=== PATIENT | female | born 1975 | race American Indian/Alaskan Native ===

== ENCOUNTER 2018-08-30 16:06 | Emergency (ER) | payer OTHER ==
--- NOTE | 2018-08-30 16:58 | ED PDOC ---
HPI: Abdomen Time Seen by Provider: 08/30/18 16:31 Chief Complaint (Nursing): Abdominal Pain Chief Complaint (Provider): Abdominal Pain History Per: Patient History/Exam Limitations: no limitations Onset/Duration Of Symptoms: Days (x2) Location Of Pain/Discomfort: LLQ Associated Symptoms: Urinary Symptoms (Vaginal bleeding) Additional Complaint(s): 42 y/o female presents to ER for evaluation of left lower quadrant pain radiating to left leg onset 2 days. Patient reports 5 days ago she had fibroid removed by Dr. Perez. She states she initially had vaginal bleeding that is resolved now. Patient reports upon returning to work on Sunday, he developed minimal pain in LLQ radiating to left leg. She reports worsening of pain today at work. Patient works here in [employer]. She denies any trauma, vaginal bleeding, nausea, vomiting, diarrhea or fever. PMD: Angel Past Medical History Reviewed: Historical Data, Nursing Documentation, Vital Signs Vital Signs: Last Vital Signs Temp 98.5 F 08/30/18 16:21 Pulse 74 08/30/18 16:21 Resp 16 08/30/18 16:21 BP 142/92 H 08/30/18 16:21 Pulse Ox 97 08/30/18 16:21 - Medical History PMH: No Chronic Diseases - Surgical History Other surgeries: Fibroid removal - Family History Family History: States: Unknown Family Hx - Allergies Allergies/Adverse Reactions: Allergies Allergy/AdvReac Type Severity Reaction Status Date / Time No Known Allergies Allergy Verified 08/30/18 16:19 Review of Systems ROS Statement: Except As Marked, All Systems Reviewed And Found Negative Constitutional: Negative for: Fever Gastrointestinal: Positive for: Abdominal Pain (LLQ). Negative for: Nausea, Vomiting, Diarrhea Genitourinary Female: Negative for: Vaginal Bleeding Musculoskeletal: Positive for: Leg Pain (Left) Physical Exam - Reviewed Nursing Documentation Reviewed: Yes Vital Signs Reviewed: Yes - Physical Exam Appears: Positive for: Well, No Acute Distress Head Exam: Positive for: ATRAUMATIC, NORMOCEPHALIC Skin: Positive for: Normal Color, Warm, Dry Cardiovascular/Chest: Positive for: Regular Rate, Rhythm. Negative for: Murmur Respiratory: Positive for: Normal Breath Sounds. Negative for: Wheezing Pulses-Dorsalis Pedis (L): 2+ Pulses-Dorsalis Pedis (R): 2+ Pulses-Femoral (L): 2+ Pulses-Femoral (R): 2+ Gastrointestinal/Abdominal: Positive for: Normal Exam, Soft. Negative for: Tenderness (including pelvis) Back: Positive for: Normal Inspection. Negative for: L CVA Tenderness, R CVA Tenderness, Vertebral Tenderness Extremity: Positive for: Normal ROM. Negative for: Pedal Edema, Swelling Neurologic/Psych: Positive for: Alert, Oriented (x3). Negative for: Other (Straight leg raise bilaterally) - Laboratory Results Result Diagrams: 08/30/18 17:15 08/30/18 17:15 - ECG O2 Sat by Pulse Oximetry: 97 (RA) Pulse Ox Interpretation: Normal Medical Decision Making Medical Decision Making: Time: 163 Initial Plan: --CT Abdomen/Pelvis --CMP --CBC --Urinalysis Case d/w Dr. Perez who agrees with plan and disposition. States pt. can f/u with him on Sunday. Pt. informed of plan and care. Agrees and will f/u with Dr. Perez on Sunday. Advised to f/u with Dr. Perez but is to return to ED immediately if symptoms worsen. Pt. verbalized correct understanding of f/u and care. Scribe Attestation: Documented by Martine Mattson, acting as a scribe for GIO Sanders. Provider Scribe Attestation: All medical record entries made by the Scribe were at my direction and personally dictated by me. I have reviewed the chart and agree that the record accurately reflects my personal performance of the history, physical exam, medical decision making, and the department course for this patient. I have also personally directed, reviewed, and agree with the discharge instructions and disposition. Disposition - Clinical Impression Clinical Impression: Pelvic pain - Patient ED Disposition Is Patient to be Admitted: No - Disposition Referrals: Lorenzo Escobar MD [Staff Provider] - Disposition: Routine/Home Disposition Time: 16:50 Condition: STABLE Additional Instructions: FOLLOW UP WITH DR. PEREZ FOR FURTHER EVALUATION RETURN TO ED IMMEDIATELY IF SYMPTOMS WORSEN ERASMOUMBERTO BRAYSEY, thank you for letting us take care of you today. Your provider was Dimitris Main MD and you were treated for WOUND CHECK, ABD PAIN. The emergency medical care you received today was directed at your acute symptoms. If you were prescribed any medication, please fill it and take as directed. It may take several days for your symptoms to resolve. Return to the Emergency Department if your symptoms worsen, do not improve, or if you have any other pro blems. Please contact your doctor or call one of the physicians/clinics you have been referred to that are listed on the Patient Visit Information form that is included in your discharge packet. Bring any paperwork you were given at discharge with you along with any medications you are taking to your follow up visit. Our treatment cannot replace ongoing medical care by a primary care provider outside of the emergency department. Thank you for allowing the [facility] team to be part of your care today. If you had an X-Ray or CT scan: A Radiologist will review the ED reading if any change in treatment is needed we will contact you. If you had a blood, urine, or wound culture: It will take several days for the results, if any change in treatment is needed we will contact you. If you had an STI test: It will take 48 hours for the results. Please call after 1 week if you have not heard back. Instructions: Postoperative Pain (DC) Forms: [employer] (French), [facility] ED School/Work Excuse Print Language: [place]
[2018-08-30 18:25] LABS: ALB/GLOB RATIO 1.3 (1.0-2.1); ALBUMIN 4.2 g/dL (3.5-5.0); ALT/SGPT 22 U/L (9-52); AST/SGOT 19 U/L (14-36); BLOOD UREA NITROGEN 10 mg/dl (7-17); CALCIUM 9.6 mg/dL (8.4-10.2); GFR NON-AFRICAN AMERICAN > 60
[2018-08-30 18:26] LABS: BASO % 0.4 % (0.0-2.0); EOS % 0.4 % (0.0-4.0); LYMPH # 3.7 K/uL (1.0-4.3); LYMPH % 34.9 % (20.0-40.0); MEAN CELL VOLUME 92.5 fl (81.0-99.0); MEAN CORPUSCULAR HEMOGLOBIN 31.6 pg (27.0-31.0); MEAN CORPUSCULAR HGB CONC 34.1 g/dL (33.0-37.0); MEAN PLATELET VOLUME 9.6 fl (7.2-11.7); MONO # 0.5 K/uL (0.0-0.8); MONO % 4.4 % (0.0-10.0); NEUT # 6.3 K/uL (1.8-7.0); NEUT % 59.9 % (50.0-75.0); RBC 4.12 Mil/uL (3.80-5.20); RED CELL DISTRIBUTION WIDTH 13.6 % (11.5-14.5); WHITE BLOOD COUNT 10.5 K/uL (4.8-10.8)
[2018-08-30] MEDS ORDERED: Iohexol 300 100 ML IJ ONE (18:28)
[2018-08-30] MEDS ORDERED: Sodium Chloride 0.9% 50 ML IV ONE (18:29)
[2018-08-30 18:35] LABS: SQUAMOUS EPITHIAL 10 /hpf (0-5); URINE BILIRUBIN NEGATIVE (NEGATIVE); URINE BLOOD NEGATIVE (NEGATIVE); URINE CLARITY SLIGHTY-CLOUDY (Clear); URINE COLOR YELLOW (YELLOW); URINE GLUCOSE (UA) NEG (NEGATIVE); URINE LEUKOCYTE ESTERASE NEG Leu/uL (Negative); URINE PROTEIN NEGATIVE (NEGATIVE); URINE UROBILINOGEN 0.2-1.0 mg/dL (0.2-1.0)
--- NOTE | 2018-08-30 18:56 | CT ---
Date of service: 08/30/2018 PROCEDURE: CT Abdomen and Pelvis with contrast HISTORY: Left lower quadrant and abdominal pain. COMPARISON: None. TECHNIQUE: Intravenous contrast dose: 95 cc Omnipaque 300 Radiation dose: Total exam DLP = 550.69 mGy-cm. This CT exam was performed using one or more of the following dose reduction techniques: Automated exposure control, adjustment of the mA and/or kV according to patient size, and/or use of iterative reconstruction technique. FINDINGS: LOWER THORAX: Unremarkable. LIVER: Unremarkable. No gross lesion or ductal dilatation. GALLBLADDER AND BILE DUCTS: Unremarkable. PANCREAS: Unremarkable. No gross lesion or ductal dilatation. SPLEEN: Unremarkable. ADRENALS: Unremarkable. No mass. KIDNEYS AND URETERS: Unremarkable. No hydronephrosis. No solid mass. VASCULATURE: Unremarkable. No aortic aneurysm. No atherosclerotic calcification or mural plaque present. BOWEL: Unremarkable. No obstruction. No gross mural thickening. APPENDIX: A normal appendix is visualized in it's entirety. PERITONEUM: Trace free fluid identified in the pelvis/cul de sac.. No free air. LYMPH NODES: Unremarkable. No enlarged lymph nodes. BLADDER: Unremarkable. REPRODUCTIVE: Enlarged, heterogeneous uterus multiple fibroids. Right adnexal cyst slightly deformed perhaps recently ruptured. Cyst measures 10 x 18 mm. BONES: No acute fracture. OTHER FINDINGS: None. IMPRESSION: Enlarged, heterogeneous and presumed myomatous uterus. Partially deformed right adnexal cyst. Associated free fluid, small volume noted. Additional benign and/or incidental findings described above.
[2018-08-30 19:56] VITALS: BP 128/76; PULSE 78; RESP 19; TEMP 97.6
[2018-08-30 20:41] VITALS: O2SAT 97
== END 2018-08-30 19:56 | disposition home or self-care (01) ==
LOC: H.ER 16:06
DX: R10.2 Pelvic and perineal pain (principal)
CPT/HCPCS: 74177; 80053; 81003; 81025; 85025; 99283; Q9967